=== PATIENT | female | born 1980 | race Caucasian/White ===

== ENCOUNTER 2017-12-14 16:51 | Emergency (ER) | END 2017-12-14 20:41 | disposition home or self-care (01) ==

== ENCOUNTER 2018-08-05 11:57 | Emergency (ER) | payer SELFPAY ==
[~2018-08-05] VITALS: Wt 105.0 kg
[~2018-08-05 11:57] MED LIST: AUG875 PO; FLUT9.9S NASAL; GUAI5SYR2 PO; HYDR-4011 PO; ONDA8TAB14 PO; PROM6.25 PO
[2018-08-05 12:07] VITALS: BP 129/81; PULSE 78; RESP 18
[2018-08-05] MEDS ORDERED: ACETAMINOPHEN 325 MG TAB PO ONE (13:00)
[2018-08-05] MEDS ORDERED: DIPHTH/TET/ACEL PERTUSS (ADULT) 0.5 ML VIAL IM* ONE (13:00)
[2018-08-05] MEDS ORDERED: IBUP-1542 PO (13:31)
--- NOTE | 2018-08-05 13:34 | ERD ---
ER Documentation Chief Complaint Chief Complaint LEFT FOOT PAIN FROM GLASS INJURY HPI 38-year-old female presents with laceration to her left foot starting today. She stepped on a broken make-up container. Her tetanus is not up-to-date. She had bleeding which currently stopped. ROS All systems reviewed and are negative except as per history of present illness. Medications Home Meds Active Scripts Ibuprofen* (Motrin*) 600 Mg Tab, 600 MG PO Q6, #15 TAB Prov:ENA CRAVEN MD 08/05/18 Ondansetron (Ondansetron Odt) 8 Mg Tab.rapdis, 8 MG PO Q6H PRN for NAUSEA AND/OR VOMITING, #10 TAB Prov:ENA CRAVEN MD 12/14/17 Hydrocodone/Acetaminophen ([place] 5-325 Tablet) 1 Each Tablet, 1 TAB PO Q6H PRN for PAIN, #12 TAB Prov:ENA CRAVEN MD 12/14/17 Promethazine w/Codeine* (Phenergan w/Codeine* Syrup) 5 Ml Syrup, 5 ML PO Q4H PRN for COUGH for 5 Days, ML 6 oz Prov:ENA CRAVEN MD 03/14/15 Guaifenesin-Dextromethorphan* (Robitussin* DM) 100MG/10MG/5ML Syrup, 5 ML PO Q6H PRN for COUGH, #240 ML 0 Refills Prov:RAFAT LIMA PA-C 03/14/15 Fluticasone Propionate (Flonase Allergy Relief) 9.9 Ml [place].susp, 1 SPRAY NASAL BID, #1 BOTTLE 0 Refills TO EACH NOSTRIL Prov:RAFAT LIMA PA-C 03/14/15 Amoxicillin-Clavulanate K* (Augmentin*) 875 Mg Tab, 875 MG PO BID, #14 TAB 0 R efills Prov:RAFAT LIMA PA-C 03/14/15 Allergies Allergies: Coded Allergies: No Known Allergy (Unverified , 03/14/15) PMhx/Soc Medical and Surgical Hx: pt denies Medical Hx, pt denies Surgical Hx History of Surgery: No Anesthesia Reaction: No Hx Neurological Disorder: No Hx Respiratory Disorders: No Hx Cardiac Disorders: No Hx Psychiatric Problems: No Hx Miscellaneous Medical Probl: No Hx Alcohol Use: Yes (WEEKEND USE) Hx Substance Use: No Hx Tobacco Use: No Smoking Status: Never smoker FmHx Family History: No diabetes, No coronary disease, No other Physical Exam Vitals Vital Signs Date Temp Pulse Resp B/P (MAP) Pulse Ox O2 O2 Flow FiO2 Time Delivery Rate 08/05/18 98.0 78 18 129/81 99 12:07 (97) Physical Exam Const: No acute distress Head: Atraumatic Eyes: Normal Conjunctiva ENT: Normal External Ears, Nose and Mouth. Neck: Full range of motion. No meningismus. Resp: Clear to auscultation bilaterally Cardio: Regular rate and rhythm, no murmurs Abd: Soft, non tender, non distended. Normal bowel sounds Skin: No petechiae or rashes Back: No midline or flank tenderness Ext: No cyanosis, or edema. Approximately 1.2 cm superficial laceration through the epidermis but not to the dermis on the left foot just lateral to the fifth metatarsal shaft. No active bleeding, erythema, restricted range of motion weakness. Neur: Awake and alert Psych: Normal Mood and Affect Results 24 hrs Current Medications Medications Dose Sig/Demetrio Start Time Status Last (Trade) Ordered Route PRN Stop Time Admin Dose Reason Admin Diphtheria/ 0.5 ml ONCE ONCE 08/05/18 DC 08/05/18 Tetanus/Acell IM* 13:00 08/05/18 13:03 Pertussis 13:01 (Adacel) 650 mg ONCE ONCE 08/05/18 DC 08/05/18 Acetaminophen PO 13:00 08/05/18 13:03 (Tylenol 13:01 Tab) Procedures/MDM X-ray Foot 3V Interpreted by me: Bones: No fracture Joints: No dislocation Foreign body: None. Impression-normal left foot x-ray without visualized radiopaque foreign body. Procedure note-left foot laceration was cleansed with Betadine. Dermabond and Steri-Strips were used to reapproximate the wound. Patient tolerated procedure well. Dressing was applied. Patient was discharged home with limited activity, recommendations for 2-day recheck for signs of infection or redness, fevers, new worsening symptoms. She should otherwise follow-up with primary doctor this week or return as directed. There is no signs of ischemia, deficits, infection currently. Departure Diagnosis: Primary Impression: Foot laceration Encounter type: initial encounter Laterality: left Qualified Codes: S91.312A - Laceration without foreign body, left foot, initial encounter Condition: Stable Patient Instructions: Laceration, Foot Additional Instructions: Recheck in 2 days for redness, fevers, new worsening symptoms. ENA CRAVEN MD Aug 05, 2018 13:34
== END 2018-08-05 13:53 | disposition home or self-care (01) ==
LOC: FTE 11:57
DX: S91.312A Laceration without foreign body, left foot, initial encounter (principal); W25.XXXA Contact with sharp glass, initial encounter; Y92.9 Unspecified place or not applicable; Z23 Encounter for immunization
CPT/HCPCS: 90471; 90715

== ENCOUNTER 2018-08-07 10:25 | Emergency (ER) | payer SELFPAY ==
[~2018-08-07] VITALS: Ht 167.6 cm; Wt 124.2 kg
[~2018-08-07 10:25] MED LIST changes: +IBUP-1542 PO
[2018-08-07 10:30] VITALS: BP 157/60; PULSE 83; RESP 16; Ht 167.6 cm; Wt 124.2 kg
--- NOTE | 2018-08-07 10:45 | ERD ---
ER Documentation Chief Complaint Chief Complaint ENCOUNTER FOR LEFT FOOT WOUND CHECK (SEEN AT [facility] ON WEDNESDAY) HPI This is a 38-year-old female presents ED for wound check of left foot. Patient was seen here 2 days ago after she suffered a laceration to the left lateral foot. The laceration was repaired in the emergency department with Steri- Strips. Patient admits to some pain along this area. Denies redness, swelling, warmth, purulent drainage, fever, chills, tingling, numbness, lack sensation and all other symptoms ROS All systems reviewed and are negative except as per history of present illness. Medications Home Meds Active Scripts Ibuprofen* (Motrin*) 600 Mg Tab, 600 MG PO Q6, #15 TAB Prov:ENA CRAVEN MD 08/05/18 Ondansetron (Ondansetron Odt) 8 Mg Tab.rapdis, 8 MG PO Q6H PRN for NAUSEA AND/OR VOMITING, #10 TAB Prov:ENA CRAVEN MD 12/14/17 Hydrocodone/Acetaminophen ([place] 5-325 Tablet) 1 Each Tablet, 1 TAB PO Q6H PRN for PAIN, #12 TAB Prov:ENA CRAVEN MD 12/14/17 Promethazine w/Codeine* (Phenergan w/Codeine* Syrup) 5 Ml Syrup, 5 ML PO Q4H PRN for COUGH for 5 Days, ML 6 oz Prov:ENA CRAVEN MD 03/14/15 Guaifenesin-Dextromethorphan* (Robitussin* DM) 100MG/10MG/5ML Syrup, 5 ML PO Q6H PRN for COUGH, #240 ML 0 Refills Prov:RAFAT LIMA PA-C 03/14/15 Fluticasone Propionate (Flonase Allergy Relief) 9.9 Ml [place].susp, 1 SPRAY NASAL BID, #1 BOTTLE 0 Refills TO EACH NOSTRIL Prov:RAFAT LIMA PA-C 03/14/15 Amoxicillin-Clavulanate K* (Augmentin*) 875 Mg Tab, 875 MG PO BID, #14 TAB 0 Refills Prov:RAFAT LIMA PA-C 03/14/15 Allergies Allergies: Coded Allergies: No Known Allergy (Unverified , 03/14/15) PMhx/Soc History of Surgery: No Anesthesia Reaction: No Hx Neurological Disorder: No Hx Respiratory Disorders: No Hx Cardiac Disorders: No Hx Psychiatric Problems: No Hx Miscellaneous Medical Probl: No Hx Alcohol Use: Yes (WEEKEND USE) Hx Substance Use: No Hx Tobacco Use: No Physical Exam Vitals Vital Signs Date Temp Pulse Resp B/P (MAP) Pulse Ox O2 O2 Flow FiO2 Time Delivery Rate 08/07/18 98.6 83 16 157/60 95 10:30 (92) Physical Exam Physical Exam Vitals signs: Reviewed by me. General: Well developed, well nourished, in no acute distress. Patient is awake and alert. Head: Normocephalic, atraumatic. Eyes: Normal conjunctiva, Pupils PERRLA, EOM intact grossly ENT: Pharynx is clear, Moist mucous membranes, external ears, nose and mouth normal Respiratory: No respiratory distress Skin: There is a well-healing wound on patient's left lateral foot with Steri- Strips in place, there is no surrounding erythema, swelling, warmth or purulent drainage, no lymphatic streaking Ext: No cyanosis, or edema Neur: Awake and alert Psych: Normal Mood and Affect Procedures/MDM ER COURSE: The patient was stable throughout ED course. I kept the patient and/or family informed of laboratory and diagnostic imaging results throughout the emergency room course. The patient was promptly evaluated and a treatment plan was devised based on H&P and other data. This plan was discussed with the patient who agreed and had no further questions or concerns prior to discharge. MEDICAL DECISION MAKIN-year-old female ED for wound check of left lateral foot. The wound is clean, dry and intact with no evidence of infection. Patient has good wound closure and good wound approximation. There is no surrounding erythema, warmth, tenderness or lymphatic streaking. Low suspicion for deep space infection, compartment syndrome, cellulitis, neurovascular injury, tendon injury. Patient's vitals are stable and she can be managed with close outpatient follow- up. Advised patient follow-up with primary care in the next 48 hours. Advised to return to ED with any worsening symptoms. DISPOSITION PLAN: We discussed follow up with the patient's primary care doctor within 24 to 48 hours. Patient counseled regarding my diagnostic impression and care plan. Prior to discharge all questions answered. Pt agrees with treatment plan and understands strict return precautions. Precautionary instructions provided including instructions to return to the ER if not improving or for any worsening or changing symptoms or concerns. ExitCare instructions provided. Prior to discharge, patients vital signs have been reviewed SPECIALIST FOLLOW UP RECOMMENDED: None Patient has been advised to follow up with primary care in 1-2 days. Disclaimer: Inadvertent spelling and grammatical errors are likely due to EHR/dictation software use and do not reflect on the overall quality of patient care. Also, please note that the electronic time recorded on this note does not necessarily reflect the actual time of the patient encounter. Departure Diagnosis: Primary Impression: Encounter for wound re-check Condition: Stable Patient Instructions: Wound Check, Lac F/U (No Infection) Referrals: [facility] YOU HAVE RECEIVED A MEDICAL SCREENING EXAM AND THE RESULTS INDICATE THAT YOU DO NOT HAVE A CONDITION THAT REQUIRES URGENT TREATMENT IN THE EMERGENCY DEPARTMENT. FURTHER EVALUATION AND TREATMENT OF YOUR CONDITION CAN WAIT UNTIL YOU ARE SEEN IN YOUR DOCTORS OFFICE WITHIN THE NEXT 1-2 DAYS. IT IS YOUR RESPONSIBILITY TO MAKE AN APPOINTMENT FOR FOLOW-UP CARE. IF YOU HAVE A PRIMARY DOCTOR --you should call your primary doctor and schedule an appointment IF YOU DO NOT HAVE A PRIMARY DOCTOR YOU CAN CALL OUR PHYSICIAN REFERRAL HOTLINE AT IF YOU CAN NOT AFFORD TO SEE A PHYSICIAN YOU CAN CHOSE FROM THE FOLLOWING [facility] [address] [facility]. [facility] [address] [facility]. [facility] [address] [facility] [facility] [address] [facility]. [facility] [address] [facility]. [facility]. [address] Additional Instructions: Patient advised to return to the ED immediately for new or worsening symptoms. Patient advised to follow up with primary care provider in the next 24-48 hours. Patient verbalized understanding and agrees with treatment plan and course of action. If patient has no primary care they may follow up with one of the [facility] clinics listed on the following page or one of the options listed below [facility] [address] [place] [address] or [facility] [address] [place] [address] or [facility] [address] [place] [address] TEJINDER MARIE PA-C Aug 07, 2018 10:45
== END 2018-08-07 10:55 | disposition home or self-care (01) ==
LOC: FTE 10:25
DX: Z48.01 Encounter for change or removal of surgical wound dressing (principal)
CPT/HCPCS: 99281